=== PATIENT | female | born 1965 | race Two or more races ===

== ENCOUNTER 2019-08-11 01:16 | Emergency (ER) | payer OTHER ==
[~2019-08-11] VITALS: Ht 170.2 cm; Wt 84.0 kg
--- NOTE | 2019-08-11 01:38 | PHYS DOC ---
Past Medical History Past Medical History: Hypertension, Other Additional Past Medical Histor: chronic kidney failure Past Surgical History: Other Additional Past Surgical Histo: gastric release Smoking Status: Current Every Day Smoker Alcohol Use: Heavy Drug Use: None General Adult EDM: Chief Complaint: LACERATION/AVULSION HPI: HPI: Patient is a 54 year old female who presents with laceration to her right lower leg that she sustained on Saturday. Patient [place] the [place] leg on a piece of metal that was on the conveyor system for luggage. She states that she has been putting Band-Aids on the wound but it continues to bleed. She states that she has also had increase in swelling to that leg. [] Review of Systems: Review of Systems: Constitutional: Denies fever or chills. [] Respiratory: Denies cough or shortness of breath. [] Cardiovascular: Denies chest pain or edema. [] Musculoskeletal: Right lower leg pain and laceration. [] Integument: Positive laceration. [] Heart Score: Risk Factors: Risk Factors: DM, Current or recent (<one month) smoker, HTN, HLP, family history of CAD, obesity. Risk Scores: Score 0 - 3: 2.5% MACE over next 6 weeks - Discharge Home Score 4 - 6: 20.3% MACE over next 6 weeks - Admit for Clinical Observation Score 7 - 10: 72.7% MACE over next 6 weeks - Early Invasive Strategies Allergies: Allergies: Allergies Coded Allergies Type Severity Reaction Last Updated Verified ibuprofen Allergy Severe PT STATES SHE HAS KIDNEY FAILURE 11/09/13 Yes Physical Exam: PE: Constitutional: Well developed, well nourished, no acute distress, non-toxic appearance. [] Cardiovascular: Regular rate and rhythm [] Lungs & Thorax: Bilateral breath sounds clear to auscultation [] Skin: There is a 1.5 cm laceration in the shape of a flap to the anterior aspect of the right lower leg, extending into subcutaneous tissue. There is a small amount of serosanguineous drainage from wound. [] EKG: EKG: [] Radiology/Procedures: Radiology/Procedures: [] Course & Med Decision Making: Course & Med Decision Making Pertinent Labs and Imaging studies reviewed. (See chart for details) [] Dragon Disclaimer: Dragon Disclaimer: This electronic medical record was generated, in whole or in part, using a voice recognition dictation system. Departure Departure Impression: Primary Impression: Laceration Additional Impression: Peripheral edema Disposition: 01 HOME, SELF-CARE Condition: STABLE Referrals: AVELINO HOLMAN MD (PCP) Patient Instructions: Laceration Care, Adult, Peripheral Edema Scripts Cephalexin (CEPHALEXIN) 500 Mg Capsule 1 CAP PO BID, #20 CAP Prov: STEFF ANGUIANO Jr. DO 08/11/19 Furosemide (LASIX) 20 Mg Tablet 1 TAB PO DAILY for 7 Days, #7 TAB 0 Refills Prov: STEFF ANUGIANO Jr. DO 08/11/19 Justicifation of Admission Dx: Justifications for Admission: Justification of Admission Dx: Comment: (Not applicable) STEFF ANGUIANO Jr. DO Aug 11, 2019 01:38
[2019-08-11] MEDS ORDERED: GELATIN SPONGE SIZE 12-7MM SPONGE. TP ONE (02:00)
--- NOTE | 2019-08-11 03:53 | RAD ---
Examination: Right Lower Extremity Venous Doppler Ultrasound History: DVT Comparison: None Procedure: Woods scale, color flow 2D and spectal waveform analysis images are obtained with and without compression in the area of the common femoral vein, superficial femoral vein - femoral vein junction, main femoral vein (superficial femoral vein) and popliteal vein. Veins of the proximal calf are also imaged. Findings: There is normal duplex flow, color flow and compressibility of all visualized vein segments. No evidence of deep venous thrombus is present. Impression: No evidence of DVT in the right lower extremity venous system. Electronically signed by: Tani Wills MD (08/11/2019 3:50 AM) [id number]
[2019-08-11 04:00] VITALS: BP 143/64
[2019-08-11] MEDS ORDERED: CEPH500C PO (04:00)
[2019-08-11] MEDS ORDERED: FURO-69 PO (04:00)
== END 2019-08-11 04:06 | disposition home or self-care (01) ==
LOC: ER 01:16
DX: S81.811A Laceration without foreign body, right lower leg, initial encounter (principal); R60.0 Localized edema; I12.9 Hypertensive chronic kidney disease with stage 1 through stage 4 chronic kidney disease, or unspecified chronic kidney disease; N18.9 Chronic kidney disease, unspecified; F17.200 Nicotine dependence, unspecified, uncomplicated; F10.20 Alcohol dependence, uncomplicated; Y90.9 Presence of alcohol in blood, level not specified; Z88.8 Allergy status to other drugs, medicaments and biological substances; W31.89XA Contact with other specified machinery, initial encounter; Y93.89 Activity, other specified; Y92.89 Other specified places as the place of occurrence of the external cause; Y99.8 Other external cause status
CPT/HCPCS: 36415; 85379; 93971; 99283; 99284-25